=== PATIENT | female | born 1990 ===

== ENCOUNTER 2021-11-21 12:51 | Inpatient (IN) | payer OTHER ==
[~2021-11-21] VITALS: Ht 170.2 cm; Wt 85.9 kg
[2021-11-21 14:10] LABS: U Amphetamine Screen Not Detected; U Barbituate Screen Not Detected; U Benzodiazapine Screen Not Detected; U Buprenorphine Screen Not Detected; U Cannabinoids Screen Not Detected; U Cocaine Screen Not Detected; U Methadone Screen Not Detected; U Methamphetamine Screen Not Detected; U Opiates Screen Not Detected; U Oxycodone Screen Not Detected; U Phencyclidine Screen Not Detected; U Propoxyphene Screen Not Detected
[2021-11-21 14:38] LABS: BASOPHILS ABSOLUTE AUTO 0.03 K/mm3 (0.00-0.23); BASOPHILS PERCENT AUTO 0 % (0-2); EOSINOPHILS ABSOLUTE AUTO 0.04 K/mm3 (0.00-0.68); EOSINOPHILS PERCENT AUTO 0 % (0-6); Hematocrit 39.6 % (33.0-51.0); IMMATURE GRAN ABSOLUTE AUTO 0.08 K/mm3 (0.00-0.10); IMMATURE GRAN PERCENT AUTO 1 % (0-1); LYMPHOCYTES PERCENT AUTO 23 % (21-46); MONOCYTES ABSOLUTE AUTO 0.75 K/mm3 (0.16-1.47); MONOCYTES PERCENT AUTO 7 % (4-13); Mean Corpuscular HGB 33.9 pg (26.0-34.0); Mean Corpuscular HGB Conc 35.4 g/dL (31.5-36.5); Mean Corpuscular Volume 96 fL (80-100); Mean Platelet Volume 10.4 fL (9.1-12.4); NEUTROPHILS ABSOLUTE AUTO 7.59 K/mm3 (1.96-9.15); NEUTROPHILS PERCENT AUTO 69 % (41-73); Platelet Count 227 K/mm3 (150-400); RDW Coefficient Variation 12.1 % (11.7-14.2); RDW Standard Deviation 42.6 fL (35.1-46.3); Red Blood Cell Count 4.13 M/mm3 (3.80-5.20); White Blood Cell Count 10.99 K/mm3 (4.00-11.30)
[2021-11-21 15:00] LABS: Albumin/Globulin Ratio 0.8 (0.8-1.8); Bilirubin, Total 1.2 mg/dL (0.1-1.0); Bun/Creatinine Ratio 16.8 (12.0-20.0); Calcium, Blood 9.3 mg/dL (8.5-10.1); Creatinine, Blood 0.65 mg/dL (0.40-1.00); Potassium, Blood 3.9 mmol/L (3.5-5.5)
--- NOTE | 2021-11-22 09:16 | NUR ---
MOTHER CALLED ME TO ROOM ASKING WHEN SHE CAN LEAVE. FOB JUST ARRIVED AND IS WANTING THEM TO BOTH LEAVE. SHE STATES SHE IS FINE LEAVING BABY HERE LONGER IF NEEDING ANTIBIOTICS BUT REQUESTING TO LEAVE AT THIS TIME. CALL TO DR NATH TO FIGURE OUT PLAN OF CARE AND WILL CALL [facility].
[2021-11-22 09:19] LABS: RPR Reactive (Nonreactive)
--- NOTE | 2021-11-22 10:46 | NUR ---
I WENT INTO ROOM TO TALK WITH PT SINCE I HAD DONE HER DELIVERY YESTERDAY AND WAS FAMILIAR WITH THE PATIENT. PT WAS UP PACING IN THE ROOM C/O OF ABD PAIN FROM CRAMPING. PT JUST R/T FROM AMBULATING OUTSIDE. I ASKED PT HOW SHE FELT ABOUT GOING HOME AND LEAVING HER BABY HERE. SHE SAID SHE WAS FINE. I ASKED IF SHE WAS IN A SAFE RELATIONSHIP AND PT STATES THAT "HE TREATS ME SO GOOD, HE IS GOING TO BUILD ME A HOUSE". I TOLD HER I WAS CONCERNED THAT HE WAS ASKING HER TO LEAVE AND LEAVE THE BABY BEHIND UNTIL THE NB WAS D/C. I TOLD HER THAT IS A SIGN OF AN UNHEALTHY RELATIONSHIP. PT REASSURED ME THAT HE TREATS HER SO GOOD. I ASKED IF SHE WAS IN A SAFE RELATIONSHIP AND SHE SAID YES. I TOLD HER THAT IN THE FUTURE IF SHE FINDS OUT THAT THIS RELATIONSHIP ISN'T WHAT SHE THOUGHT IT WAS THAT SHE COULD CALL THE [facility] AT ANYTIME AND THAT THERE ARE WOMEN HERE THAT WILL HELP HER GET HELP. SHE VERBALIZED UNDERSTANDING.
--- NOTE | 2021-11-22 10:51 | NUR ---
MOTHER AND FATHER WENT OUT SIDE TO SMOKE.MOTHER CAME BACK IN ABOUT 15 MINUTES LATER. STATES FATHER JUST WENT TO [facility] [place] [facility] TO GET BABY A BED. INSTRUCTED MOTHER THAT IT IS TIME FOR BABY TO EAT AGAIN BC IT HAS BEEN 3 HOURS. IMMEDIATELY SHE STARTED OPENING A BOTTLE AND ATTEMPTING TO WAKE BABY UP.
--- NOTE | 2021-11-22 11:05 | NUR ---
SUZY- DAVID FROM [facility] IN TALKING WITH PATIENT NOW.
[2021-11-22] MEDS ORDERED: ACET500 PO (11:09)
[2021-11-22] MEDS ORDERED: IBUP800 PO (11:09)
--- NOTE | 2021-11-22 13:23 | NUR ---
DISCHARGE- DR NATH IN ROOM FOR DISCHARGE. PARENTS STATE THEY ARE READY TO LEAVE NOW AND WILL COME BACK WHEN BABY IS READY TO GO HOME. PT VERBALIZES UNDERSTANDING OF DC INSTRUCTIONS. DECLINES TO HAVE FOLLOW UP APPOINTMENT HERE BUT WILL FOLLOW UP WITH DR NATH IN OFFICE. PARENTS PACKED UP THEIR THINGS AND LEFT. THERE WAS NO EMOTION TOWARDS THE BABY AND TOLD ME THAT SHE DID EAT ABOUT 30 MINUTES AGO. DISCHARGED AND BABY TO NURSERY TO BE CARED FOR BY SENIOR DRUPAL DEVELOPER/RN.
[2021-11-23 02:11] LABS: CHLAMYDIA TRACHOMATIS, NAA Negative (Negative)
[2021-11-25 16:36] LABS: Test Name 3001704
[2021-11-26 18:10] LABS: HCV LOG10 6.597 (.); HEPATITIS C GENOTYPE 1a (.); HEPATITIS C QUANTITATION 3950000 IU/mL (.)
== END 2021-11-22 13:20 | disposition home or self-care (01) | DRG 806 ==
LOC: OBS 12:51 → BC 12:54 → OBS 13:44 → BC 13:57
PROVIDERS: Pathology Anatomic Pathology & Clinical Pathology; ADMIT Obstetrics & Gynecology
PROC: 10E0XZZ Delivery of Products of Conception, External Approach (ICD-10-PCS; principal; 2021-11-21)
PROC: 10907ZC Drainage of Amniotic Fluid, Therapeutic from Products of Conception, Via Natural or Artificial Opening (ICD-10-PCS; 2021-11-21)
PROC: 3E0R3BZ Introduction of Anesthetic Agent into Spinal Canal, Percutaneous Approach (ICD-10-PCS; 2021-11-21)
PROC: 00HU33Z Insertion of Infusion Device into Spinal Canal, Percutaneous Approach (ICD-10-PCS; 2021-11-21)
DX: O48.0 Post-term pregnancy (principal); O98.12 Syphilis complicating childbirth; Z37.0 Single live birth; O98.42 Viral hepatitis complicating childbirth; O99.334 Smoking (tobacco) complicating childbirth; F17.200 Nicotine dependence, unspecified, uncomplicated; B18.2 Chronic viral hepatitis C; O99.824 Streptococcus B carrier state complicating childbirth; A53.9 Syphilis, unspecified; O77.0 Labor and delivery complicated by meconium in amniotic fluid; Z3A.40 40 weeks gestation of pregnancy; Z91.018 Allergy to other foods
CPT/HCPCS: 36415; 80053; 85025; 86592; 86593; 86703; 86762; 86780; 86850; 86900; 86901; 87491; 87522; 87591; 87902; 88307; A9270; J0561; J1885; J2210; J2590; J3010; J7120